=== PATIENT | male | born 1955 | race Caucasian/White ===

== ENCOUNTER → 2017-01-24 | Outpatient (CLI) | payer OTHER | LOC: FIMAGING 14:26 | PROVIDERS: ATTEND Family Medicine | DX: M48.02 Spinal stenosis, cervical region (principal); M99.71 Connective tissue and disc stenosis of intervertebral foramina of cervical region; M12.88 Other specific arthropathies, not elsewhere classified, other specified site; M50.322 Other cervical disc degeneration at C5-C6 level; M50.323 Other cervical disc degeneration at C6-C7 level; R07.9 Chest pain, unspecified ==

== ENCOUNTER 2017-08-14 10:46 | Emergency (ER) | payer OTHER ==
--- NOTE | 2017-08-14 11:05 | EDPHY ---
H & P Stated Complaint: TOBAR, dizziness, nausea; has not eaten today Source: Patient - Personal History Current Tetanus/Diphtheria Vaccine: Yes Tetanus Vaccine Date: unsure - Medical/Surgical History Hx Asthma: No Hx Chronic Respiratory Disease: No Hx Diabetes: No Hx Cardiac Disease: No Hx Renal Disease: No Hx Cirrhosis: No Hx Alcoholism: No Hx HIV/AIDS: No Hx Splenectomy or Spleen Trauma: No Other PMH: KNEE SURG,cervical fx - Family History Significant Family History: No pertinent family hx - Social History Smoking Status: Never smoked Alcohol Use: Sober Drug Use: None Time Seen by Provider: 08/14/17 11:04 HPI/ROS: CHIEF COMPLAINT: Headache, dizzy, mumbled speech HISTORY OF PRESENT ILLNESS: Patient is a 61-year-old man with no significant past medical history who comes to the emergency department complaining of dizziness, headache and confusion that began at 9:30 a.m.. He has very mumbled and slow speech. His states that this is very out of character for him. He denies chest pain or shortness of breath. No new medications. He does describe unusual distortion of his vision on both sides. He also complains of some visual abnormalities in his peripheral vision. REVIEW OF SYSTEMS: Constitutional: denies: chills, fever, recent illness, recent injury EENTM: denies: blurred vision, double vision, nose congestion Respiratory: denies: cough, shortness of breath Cardiac: denies: chest pain, irregular heart rate, lightheadedness, palpitations Gastrointestinal/Abdominal: denies: abdominal pain, diarrhea, nausea, vomiting, blood streaked stools Genitourinary: denies: dysuria, frequency, hematuria, pain Musculoskeletal: denies: joint pain, muscle pain Skin: denies: lesions, rash, jaundice, bruising Neurological: denies: headache, numbness, paresthesia, tingling, dizziness, weakness Hematologic/Lymphatic: denies: blood clots, easy bleeding, easy bruising Immunologic/allergic: denies: HIV/AIDS, transplant EXAM: GENERAL: Well-appearing, well-nourished and in no acute distress. HEAD: Atraumatic, normocephalic. EYES: Pupils equal round and reactive to light, extraocular movements intact, sclera anicteric, conjunctiva are normal. No nystagmus ENT: TMs normal, nares patent, oropharynx clear without exudates. Moist mucous membranes. NECK: Normal range of motion, supple without lymphadenopathy or JVD. LUNGS: Breath sounds clear to auscultation bilaterally and equal. No wheezes rales or rhonchi. HEART: Regular rate and rhythm without murmurs, rubs or gallops. ABDOMEN: Soft, nontender, normoactive bowel sounds. No guarding, no rebound. No masses appreciated. BACK: No CVA tenderness, no spinal tenderness, step-offs or deformities EXTREMITIES: Normal range of motion, no pitting or edema. No clubbing or cyanosis. NEUROLOGICAL: NIH stroke score 1 for mild dysarthria. Cranial nerves II through XII grossly intact. Normal speech, normal gait. 5/5 strength, normal movement in all extremities, normal sensation, no pronator drift PSYCH: Normal mood, normal affect. SKIN: Warm, dry, normal turgor, no visible rashes or lesions. (Felipe Zelaya) Constitutional: Initial Vital Signs Temperature (C) 36.9 C 08/14/17 10:52 Heart Rate 65 08/14/17 10:52 Respiratory Rate 18 08/14/17 10:52 Blood Pressure 142/86 H 08/14/17 10:52 O2 Sat (%) 96 08/14/17 10:52 O2 Delivery Mode Room Air Allergies/Adverse Reactions: No Known Allergies Allergy (Verified 08/14/17 11:01) Home Medications: Medication Instructions Recorded clonAZEPAM 08/14/17 Medical Decision Making - Diagnostics EKG Interpretation: An EKG obtained and was read and documented in trace view. Please see trace view for full reading and report. Sinus rhythm, no acute ischemic changes ( Felipe Zelaya) Imaging Results: Imaging Impressions Chest X-Ray 08/14/17 11:22 Impression: No acute abnormality identified. Head CT 08/14/17 11:22 Impression: 1. Normal CT brain without contrast. 2. Consider MRI of the brain without and with contrast enhancement, if there is continued clinical concern. Findings and recommendations discussed with Emergency Department physician, FELIPE ZELAYA at 11:30 hour, 08/14/2017. Final report concurs with initial preliminary interpretation. Brain MRI 08/14/17 13:20 Impression: 1. Negative. No acute intracranial hemorrhage or evidence of ischemia. 2. Minimal periventricular white matter disease in the frontal lobes is unchanged since 2006 and within normal limit for age. Findings discussed with Emergency Department physician, Stephanie Goldman M.D., on August 14, 2017 at 1530. ED Course/Re-evaluation: 11:15 a.m. Immediately on evaluation called a stroke alert and spoke with Dr. Silveira from [facility]. She is currently evaluating the patient 12:[address] Silveira from [facility] feels the patient is likely a complex migraine. His headache is improved and his speech is improved. He feels dizzy when he stands up but is able to ambulate. She does not recommend tPA. She recommends treatment for headache and MRI. We will transfer to [facility] for the MRI by ambulance. Spoke with Dr. Goldman who accepts. If his symptoms resolve and is MRI is negative he will be eligible for discharge. ( Felipe Zelaya) Differential Diagnosis: Partial list of the Differential diagnosis considered include but were not limited to; migraine, CVA and although unlikely based on the history and physical exam, I also considered acute coronary disease, PE, infection, trauma. (Felipe Zelaya) Other Provider: 61-year-old male presenting from the [facility] for an MRI. Please see my emergency department report separately. (Stephanie Goldman) - Data Points Laboratory Results: Laboratory Results 08/14/17 11:11 08/14/17 11:11 08/14/17 08/14/17 08/14/17 11:11 11:11 11:11 WBC RBC Hgb Hct MCV MCH MCHC RDW Plt Count MPV Neut % (Auto) Lymph % (Auto) Bailey % (Auto) Eos % (Auto) Baso % (Auto) Nucleat RBC Rel Count Absolute Neuts (auto) Absolute Lymphs (auto) Absolute Monos (auto) Absolute Eos (auto) Absolute Basos (auto) Absolute Nucleated RBC Immature Gran % Immature Gran # PT 13.3 SEC SEC (12.0-15.0) INR 1.04 (0.83-1.16) APTT 28.1 SEC SEC (23.0-38.0) POC Blood Source Patient Temperature POC pH POC pCO2 POC pO2 POC HCO3 POC Total CO2 POC Base Excess POC O2 Sat (Calc) Sodium 131 mEq/L L mEq/L (134-144) Potassium 4.2 mEq/L mEq/L (3.5-5.2) Chloride 96 mEq/L L mEq/L (97-110) Carbon Dioxide 24 mEq/l mEq/l (22-31) Anion Gap 11 mEq/L mEq/L (8-16) BUN 13 mg/dL mg/dL (7-23) Creatinine 0.8 mg/dL mg/dL (0.7-1.3) Estimated GFR > 60 Glucose 98 mg/dL mg/dL (70-100) POC Glucose Calcium 8.7 mg/dL mg/dL (8.5-10.4) Troponin I < 0.012 ng/mL ng/mL (0.000-0.034) Urine Color PALE YELLOW Urine Appearance CLEAR Urine pH 5.5 (5.0-7.5) Ur Specific [place] <= 1.005 (1.002-1.030) Urine Protein NEGATIVE (NEGATIVE) Urine Ketones NEGATIVE (NEGATIVE) Urine Blood NEGATIVE (NEGATIVE) Urine Nitrate NEGATIVE (NEGATIVE) Urine Bilirubin NEGATIVE (NEGATIVE) Urine Urobilinogen 0.2 EU EU (0.2-1.0) Ur Leukocyte Esterase NEGATIVE (NEGATIVE) Urine Glucose NEGATIVE (NEGATIVE) 08/14/17 08/14/17 08/14/17 11:11 11:10 11:02 WBC 4.96 10^3/uL 10^3/uL (3.80-9.50) RBC 4.97 10^6/uL 10^6/uL (4.40-6.38) Hgb 15.5 g/dL g/dL (13.7-17.5) Hct 44.8 % % (40.0-51.0) MCV 90.1 fL fL (81.5-99.8) MCH 31.2 pg pg (27.9-34.1) MCHC 34.6 g/dL g/dL (32.4-36.7) RDW 11.9 % % (11.5-15.2) Plt Count 195 10^3/uL 10^3/uL (150-400) MPV 10.0 fL fL (8.7-11.7) Neut % (Auto) 56.1 % % (39.3-74.2) Lymph % (Auto) 29.0 % % (15.0-45.0) Bailey % (Auto) 11.1 % % (4.5-13.0) Eos % (Auto) 2.6 % % (0.6-7.6) Baso % (Auto) 0.6 % % (0.3-1.7) Nucleat RBC Rel Count 0.0 % % (0.0-0.2) Absolute Neuts (auto) 2.78 10^3/uL 10^3/uL (1.70-6.50) Absolute Lymphs (auto) 1.44 10^3/uL 10^3/uL (1.00-3.00) Absolute Monos (auto) 0.55 10^3/uL 10^3/uL (0.30-0.80) Absolute Eos (auto) 0.13 10^3/uL 10^3/uL (0.03-0.40) Absolute Basos (auto) 0.03 10^3/uL 10^3/uL (0.02-0.10) Absolute Nucleated RBC 0.00 10^3/uL 10^3/uL (0-0.01) Immature Gran % 0.6 % % (0.0-1.1) Immature Gran # 0.03 10^3/uL 10^3/uL (0.00-0.10) PT INR APTT POC Blood Source OTHER Patient Temperature 37.0 DEGREES DEGREES POC pH 7.39 (7.35-7.45) POC pCO2 42 mmHg H mmHg (34-38) POC pO2 28 mmHg L* mmHg (65-75) POC HCO3 25 mEq/L mEq/L (22-26) POC Total CO2 26 mEq/L mEq/L (23-27) POC Base Excess 0.0 mEq/L mEq/L (-2.5-2.5) POC O2 Sat (Calc) 53 % L % (92-95) Sodium Potassium Chloride Carbon Dioxide Anion Gap BUN Creatinine Estimated GFR Glucose POC Glucose 107 mg/dL H mg/dL (70-100) Calcium Troponin I Urine Color Urine Appearance Urine pH Ur Specific [place] Urine Protein Urine Ketones Urine Blood Urine Nitrate Urine Bilirubin Urine Urobilinogen Ur Leukocyte Esterase Urine Glucose Medications Given: Discontinued Medications Acetaminophen (Tylenol) 1,000 mg PO EDNOW ONE Stop: 08/14/17 15:58 Last Admin: 08/14/17 16:21 Dose: 1,000 mg Sodium Chloride (Ns) 1,000 mls @ 0 mls/hr IV EDNOW ONE; Wide Open PRN Reason: Protocol Stop: 08/14/17 11:55 Last Admin: 08/14/17 11:57 Dose: 1,000 mls Ibuprofen (Motrin) 600 mg PO EDNOW ONE Stop: 08/14/17 15:58 Last Admin: 08/14/17 16:22 Dose: 600 mg Metoclopramide HCl (Reglan Injection) 10 mg IVP EDNOW ONE Stop: 08/14/17 11:55 Last Admin: 08/14/17 11:57 Dose: 10 mg Point of Care Test Results: 08/14/17 08/14/17 11:02 11:10 POC pCO2 42 H POC pO2 28 L* POC Glucose 107 H Departure - Departure Disposition: [facility] ER Clinical Impression: Dizziness Headache Qualifiers: Headache type: unspecified Headache chronicity pattern: acute headache Intractability: not intractable Qualified Code(s): R51 - Headache Condition: Fair Instructions: Migraine Headache (ED), Ocular Migraine (ED) Additional Instructions: Get plenty of rest. Drink plenty of fluid. Okay to use Tylenol or ibuprofen if needed for any residual headache. Follow up with a neurologist as directed below. Return to the emergency department or seek care urgently if you develop recurrent symptoms speech difficulties, numbness or tingling in the arms or legs , weakness, severe headache, or other concerns. Referrals: Cindy Herrera MD [Primary Care Provider] - As per Instructions Moses Parker MD [Medical Doctor] - As per Instructions
[2017-08-14 11:15] LABS: CALCULATED OXYGEN SATURATION 53 % (92-95)
[2017-08-14 11:30] LABS: % IMMATURE GRANULYOCYTES 0.6 % (0.0-1.1); ABSOLUTE IMMATURE GRANULOCYTES 0.03 10^3/uL (0.00-0.10); ADD DIFF? NO; ADD MORPH? NO; ADD SCAN? NO; ATYPICAL LYMPHOCYTE FLAG 0 (0-99); FRAGMENT RBC FLAG 0 (0-99); HEMATOCRIT 44.8 % (40.0-51.0); HEMOGLOBIN 15.5 g/dL (13.7-17.5); LEFT SHIFT FLG 0 (0-99); LIPEMIA HEMOLYSIS FLAG 90 (0-99); MEAN CELL HEMOGLOBIN 31.2 pg (27.9-34.1); MEAN CELL HEMOGLOBIN CONCENTR. 34.6 g/dL (32.4-36.7); MEAN CELL VOLUME 90.1 fL (81.5-99.8); PLATELET CLUMPS FLAG 0 (0-99); PLATELET COUNT 195 10^3/uL (150-400); RED BLOOD CELL COUNT 4.97 10^6/uL (4.40-6.38); RED CELL DISTRIBUTION WIDTH 11.9 % (11.5-15.2)
[2017-08-14 11:34] LABS: INR 1.04 (0.83-1.16); PROTIME(PATIENT) 13.3 SEC (12.0-15.0)
[2017-08-14 11:35] LABS: APTT 28.1 SEC (23.0-38.0)
[2017-08-14 11:42] LABS: ANION GAP 11 mEq/L (8-16); CALCIUM 8.7 mg/dL (8.5-10.4); CARBON DIOXIDE 24 mEq/l (22-31); CHLORIDE 96 mEq/L (97-110); CREATININE 0.8 mg/dL (0.7-1.3); GLOMERULAR FILTRATION RATE > 60; GLUCOSE 98 mg/dL (70-100); POTASSIUM 4.2 mEq/L (3.5-5.2); SODIUM 131 mEq/L (134-144)
[2017-08-14 11:44] LABS: LEUKOCYTE ESTERASE,URINE NEGATIVE (NEGATIVE); NITRITE,URINE NEGATIVE (NEGATIVE); PH,URINE 5.5 (5.0-7.5)
[2017-08-14 11:52] LABS: COLOR PALE YELLOW; TROPONIN I < 0.012 ng/mL (0.000-0.034)
[2017-08-14] MEDS ORDERED: METOCLOPRAMIDE 10 MG/2 ML VIAL IVP ONE (11:54)
[2017-08-14] MEDS ORDERED: NS 1,000 ML IV ONE (11:54)
--- NOTE | 2017-08-14 12:16 | CPEKG ---
Heart Rate: 63 RR Interval: 952 P-R Interval: 192 QRSD Interval: 98 QT Interval: 408 QTC Interval: 418 P Lenorah: 65 QRS Lenorah: 36 T Wave Lenorah: 38 EKG Severity - NORMAL ECG - EKG Impression: SINUS RHYTHM Electronically Signed By: Felipe Zelaya 14-Aug-2017 12:17:02
[2017-08-14 13:22] VITALS: O2SAT 96
--- NOTE | 2017-08-14 13:37 | EDPHY ---
HPI/HX/ROS/PE/MDM Narrative: CHIEF COMPLAINT: Headache, nausea, dizziness HISTORY OF PRESENT ILLNESS: This patient is a 61 year old male arriving from the [facility] in [place] at the request of Dr. Zelaya, emergency physician, for further evaluation and MRI for dizziness, headache, and nausea onset this morning. This morning, he went to [place] for routine UA after drinking more than one gallon of liquid and no breakfast. When he got out of the car and began to hear a "whooshing" noise in both ears and felt mild nausea. After the test, he felt well enough to drive home, but when he arrived home, he felt very nauseated. He continued to have an abnormal sensation in his ears and noted shimmering in both visual rothman. His insisted he present to the emergency department for evaluation. His had to assist him to walk into the emergency department because he was very wobbly. He began to have difficulty with speech at triage at the [facility]. He describes that as difficulty making words, and endorses left-sided headache. Currently, his speech is feeling normal and his dizziness is mostly resolved. He was able to walk to and from the restroom without difficulty. His headache is currently about 2 or 3/10 in severity. No fever, chills, chest pain, shortness of breath, palpitations, vomiting, diarrhea, urinary complaints. REVIEW OF SYSTEMS: Aside from elements discussed in the HPI, a comprehensive 10-point review of systems was reviewed and is negative. PAST MEDICAL HISTORY: 1. Orthopedic surgery (knee) 2. Cervical spine fracture SOCIAL HISTORY: . Lives in [place]. Works for [employer]. VITAL SIGNS: Reviewed by me GENERAL: Well-developed, well-nourished, resting comfortably in no respiratory distress. HEENT: Atraumatic. Eyes: No icterus, no injection. Mouth: moist mucous membranes. No erythema or lesions. Neck: supple with no adenopathy. LUNGS: Clear to auscultation bilaterally, no wheezes, rhonchi or rales. CARDIAC: Regular rate and rhythm, no rubs, murmurs or gallops. ABDOMEN: Soft, nontender, nondistended, bowel sounds normal. BACK: No CVA tenderness. EXTREMITIES: No trauma. No edema. Range of motion is normal throughout. NEURO: Alert and oriented, grossly nonfocal. SKIN: Warm and dry, no rash. PSYCHIATRIC: Normal mentation, no agitation. Portions of this note were transcribed by a medical referral coordinator. I personally performed a history, physical exam, medical decision making, and confirmed accuracy of information the transcribed note. ED Course: 13:[address] Zelaya at [facility]. Interviewed and examined patient. The patient is neurologically intact on my assessment. Cranial nerves intact. Normal [id number]. Sensation intact. Plan for MRI as planned by Dr. Zelaya. Results: MRI of the brain was obtained. The results of the study were reported to me as : No signs of CVA, no significant abnormalities. The study was read by Dr. Sarah, please see his full report. I viewed the images myself on the PACS system. Patient was reassessed. He reports feeling significantly improved. He has no further slurred speech or visual complaints. He has a residual headache which was treated with Tylenol and ibuprofen. He was discharged to follow up with Dr. Parker. He and his family are comfortable with this plan. MDM: After history was obtained, and the physical exam performed, a differential for patient's symptom complaints was considered including but not limited to intracranial injury, TIA, ischemic cerebrovascular accident, hemorrhagic cerebrovascular accident, hypoglycemia, complex migraine, metastases, tumor, seizure, or electrolyte abnormality - Data Points Imaging Results: Imaging Impressions Chest X-Ray 08/14/17 11:22 Impression: No acute abnormality identified. Head CT 08/14/17 11:22 Impression: 1. Normal CT brain without contrast. 2. Consider MRI of the brain without and with contrast enhancement, if there is continued clinical concern. Findings and recommendations discussed with Emergency Department physician, AMARIS ZELAYA at 11:30 hour, 08/14/2017. Final report concurs with initial preliminary interpretation. Brain MRI 08/14/17 13:20 Impression: 1. Negative. No acute intracranial hemorrhage or evidence of ischemia. 2. Minimal periventricular white matter disease in the frontal lobes is unchanged since 2006 and within normal limit for age. Findings discussed with Emergency Department physician, Stephanie Goldman M.D., on August 14, 2017 at 1530. Laboratory Results: Laboratory Results 08/14/17 11:11 08/14/17 11:11 08/14/17 08/14/17 08/14/17 11:11 11:11 11:11 WBC RBC Hgb Hct MCV MCH MCHC RDW Plt Count MPV Neut % (Auto) Lymph % (Auto) [place] % (Auto) Eos % (Auto) Baso % (Auto) Nucleat RBC Rel Count Absolute Neuts (auto) Absolute Lymphs (auto) Absolute Monos (auto) Absolute Eos (auto) Absolute Basos (auto) Absolute Nucleated RBC Immature Gran % Immature Gran # PT 13.3 SEC SEC (12.0-15.0) INR 1.04 (0.83-1.16) APTT 28.1 SEC SEC (23.0-38.0) POC Blood Source Patient Temperature POC pH POC pCO2 POC pO2 POC HCO3 POC Total CO2 POC Base Excess POC O2 Sat (Calc) Sodium 131 mEq/L L mEq/L (134-144) Potassium 4.2 mEq/L mEq/L (3.5-5.2) Chloride 96 mEq/L L mEq/L (97-110) Carbon Dioxide 24 mEq/l mEq/l (22-31) Anion Gap 11 mEq/L mEq/L (8-16) BUN 13 mg/dL mg/dL (7-23) Creatinine 0.8 mg/dL mg/dL (0.7-1.3) Estimated GFR > 60 Glucose 98 mg/dL mg/dL (70-100) POC Glucose Calcium 8.7 mg/dL mg/dL (8.5-10.4) Troponin I < 0.012 ng/mL ng/mL (0.000-0.034) Urine Color PALE YELLOW Urine Appearance CLEAR Urine pH 5.5 (5.0-7.5) Ur Specific [place] <= 1.005 (1.002-1.030) Urine Protein NEGATIVE (NEGATIVE) Urine Ketones NEGATIVE (NEGATIVE) Urine Blood NEGATIVE (NEGATIVE) Urine Nitrate NEGATIVE (NEGATIVE) Urine Bilirubin NEGATIVE (NEGATIVE) Urine Urobilinogen 0.2 EU EU (0.2-1.0) Ur Leukocyte Esterase NEGATIVE (NEGATIVE) Urine Glucose NEGATIVE (NEGATIVE) 08/14/17 08/14/17 08/14/17 11:11 11:10 11:02 WBC 4.96 10^3/uL 10^3/uL (3.80-9.50) RBC 4.97 10^6/uL 10^6/uL (4.40-6.38) Hgb 15.5 g/dL g/dL (13.7-17.5) Hct 44.8 % % (40.0-51.0) MCV 90.1 fL fL (81.5-99.8) MCH 31.2 pg pg (27.9-34.1) MCHC 34.6 g/dL g/dL (32.4-36.7) RDW 11.9 % % (11.5-15.2) Plt Count 195 10^3/uL 10^3/uL (150-400) MPV 10.0 fL fL (8.7-11.7) Neut % (Auto) 56.1 % % (39.3-74.2) Lymph % (Auto) 29.0 % % (15.0-45.0) [place] % (Auto) 11.1 % % (4.5-13.0) Eos % (Auto) 2.6 % % (0.6-7.6) Baso % (Auto) 0.6 % % (0.3-1.7) Nucleat RBC Rel Count 0.0 % % (0.0-0.2) Absolute Neuts (auto) 2.78 10^3/uL 10^3/uL (1.70-6.50) Absolute Lymphs (auto) 1.44 10^3/uL 10^3/uL (1.00-3.00) Absolute Monos (auto) 0.55 10^3/uL 10^3/uL (0.30-0.80) Absolute Eos (auto) 0.13 10^3/uL 10^3/uL (0.03-0.40) Absolute Basos (auto) 0.03 10^3/uL 10^3/uL (0.02-0.10) Absolute Nucleated RBC 0.00 10^3/uL 10^3/uL (0-0.01) Immature Gran % 0.6 % % (0.0-1.1) Immature Gran # 0.03 10^3/uL 10^3/uL (0.00-0.10) PT INR APTT POC Blood Source OTHER Patient Temperature 37.0 DEGREES DEGREES POC pH 7.39 (7.35-7.45) POC pCO2 42 mmHg H mmHg (34-38) POC pO2 28 mmHg L* mmHg (65-75) POC HCO3 25 mEq/L mEq/L (22-26) POC Total CO2 26 mEq/L mEq/L (23-27) POC Base Excess 0.0 mEq/L mEq/L (-2.5-2.5) POC O2 Sat (Calc) 53 % L % (92-95) Sodium Potassium Chloride Carbon Dioxide Anion Gap BUN Creatinine Estimated GFR Glucose POC Glucose 107 mg/dL H mg/dL (70-100) Calcium Troponin I Urine Color Urine Appearance Urine pH Ur Specific [place] Urine Protein Urine Ketones Urine Blood Urine Nitrate Urine Bilirubin Urine Urobilinogen Ur Leukocyte Esterase Urine Glucose Medications Given: Discontinued Medications Acetaminophen (Tylenol) 1,000 mg PO EDNOW ONE Stop: 08/14/17 15:58 Last Admin: 08/14/17 16:21 Dose: 1,000 mg Sodium Chloride (Ns) 1,000 mls @ 0 mls/hr IV EDNOW ONE; Wide Open PRN Reason: Protocol Stop: 08/14/17 11:55 Last Admin: 08/14/17 11:57 Dose: 1,000 mls Ibuprofen (Motrin) 600 mg PO EDNOW ONE Stop: 08/14/17 15:58 Last Admin: 08/14/17 16:22 Dose: 600 mg Metoclopramide HCl (Reglan Injection) 10 mg IVP EDNOW ONE Stop: 08/14/17 11:55 Last Admin: 08/14/17 11:57 Dose: 10 mg Point of Care Test Results: 08/14/17 08/14/17 11:02 11:10 POC pCO2 42 H POC pO2 28 L* POC Glucose 107 H General Time Seen by Provider: 08/14/17 11:04 Initial Vital Signs: Initial Vital Signs Temperature (C) 36.9 C 08/14/17 10:52 Heart Rate 65 08/14/17 10:52 Respiratory Rate 18 08/14/17 10:52 Blood Pressure 142/86 H 08/14/17 10:52 O2 Sat (%) 96 08/14/17 10:52 O2 Delivery Mode Room Air Allergies/Adverse Reactions: No Known Allergies Allergy (Verified 08/14/17 11:01) Home Medications: Medication Instructions Recorded clonAZEPAM 08/14/17 Departure - Departure Disposition: [facility] Clinical Impression: Dizziness Headache Qualifiers: Headache type: unspecified Headache chronicity pattern: acute headache Intractability: not intractable Qualified Code(s): R51 - Headache Condition: Fair Instructions: Migraine Headache (ED), Ocular Migraine (ED) Additional Instructions: Get plenty of rest. Drink plenty of fluid. Okay to use Tylenol or ibuprofen if needed for any residual headache. Follow up with a neurologist as directed below. Return to the emergency department or seek care urgently if you develop recurrent symptoms speech difficulties, numbness or tingling in the arms or legs , weakness, severe headache, or other concerns. Referrals: Cindy Herrera MD [Primary Care Provider] - As per Instructions Moses Parker MD [Medical Doctor] - As per Instructions Report Scribed for: Stephanie Goldman Report Scribed by: Letitia Christensen Date of Report: 08/14/17 Time of Report: 13:37
[2017-08-14] MEDS ORDERED: IBUPROFEN 600 MG TAB PO ONE (15:57)
[2017-08-14] MEDS ORDERED: ACETAMINOPHEN 500 MG TAB PO ONE (15:57)
[2017-08-14 17:14] VITALS: BP 112/69; PULSE 68; RESP 16; TEMP 97.9
== END 2017-08-14 17:11 | disposition home or self-care (01) ==
LOC: CED 10:46
DX: R51 Headache (principal); R42 Dizziness and giddiness; E86.9 Volume depletion, unspecified
CPT/HCPCS: 70450-PO; 71010-PO; 80048-PO; 81003-PO; 82947-QW; 84484-PO; 85025-PO; 85610-PO; 85730-PO; 96374; J2765

== ENCOUNTER 2019-03-03 11:41 | Observation (INO) | payer BC, OTHER ==
[2019-03-03] MEDS ORDERED: NS 500 ML IV ONE (12:22)
[2019-03-03] MEDS ORDERED: MECLIZINE HCL 25 MG TAB PO ONE (12:23)
[2019-03-03] MEDS ORDERED: LORazepam 2 MG/ML INJ IVP ONE (12:23)
[2019-03-03] MEDS ORDERED: ONDANSETRON 4 MG/2 ML VIAL IVP ONE (12:24)
--- NOTE | 2019-03-03 13:37 | EDPHY ---
H & P Smoking Status: Never smoked Time Seen by Provider: 03/03/19 11:48 HPI/ROS: CHIEF COMPLAINT: Dizziness, nausea vomiting. HISTORY OF PRESENT ILLNESS: Patient states that on Sunday while at work he was turning his head to look at an occiloscope, when he developed a dizzy spell. He describes it as a spinning sensation. It lasted about 30 sec and then went away. He was able to drive home and had 1 more episode of dizziness while at home that evening. He was able to eat and drink and felt fine when he went to bed. Sunday he describes as "ugly". Essentially he was in bed all day with significant dizziness, again described as a spinning sensation, worse with any movement. He was able to find relief if he were to hold still. He did not have any nausea or vomiting at that time. Sunday he felt well when he got up he was able to go to the grocery store and spent a significant time shopping. He had 1 "swimmy" feeling while he was shopping but it went away. He was able to drive home and have a normal dinner on Sunday. This morning, however, he states when he got up he felt good but after moving in bed things began spinning again. Today the spinning has been more persistent and associated with nausea and vomiting. Any movement makes him nauseous and he has had multiple episodes of vomiting. Patient denies any recent illnesses. He has no neck pain. He has no vision changes. He has no weakness or numbness to any of his extremities. He has not fallen. REVIEW OF SYSTEMS: Constitutional: No fever, no chills. Eyes: No discharge. ENT: No sore throat. Cardiovascular: No chest pain, no palpitations. Respiratory: No cough, no shortness of breath. Gastrointestinal: No abdominal pain, no vomiting. Genitourinary: No dysuria. Musculoskeletal: No back pain. Skin: No rashes. Neurological: No headache. General Appearance: Alert, moderate distress. Eyes: Pupils equal and round no pallor or injection. Nice diagnose to the left. ENT, Mouth: Mucous membranes moist. Respiratory: There are no retractions, lungs are clear to auscultation. Cardiovascular: Regular rate and rhythm. Gastrointestinal: Abdomen is soft and nontender, no masses, bowel sounds normal. Neurological: Awake, alert, oriented. Cranial nerves intact other than ice diagnose to the left. Normal strength and sensation all 4 extremities. Normal reflexes. No clonus. Unable to evaluate gait. Skin: Warm and dry, no rashes. Musculoskeletal: Neck is supple nontender. Extremities are symmetrical, full range of motion, no edema. Psychiatric: Patient is oriented X 3, there is no agitation. Medical/surgical history: Knee surgery. Social history: Denies tobacco, EtOH, drugs. (Gaby Palacio) Constitutional: Initial Vital Signs Temperature (C) 36.3 C 03/03/19 11:47 Heart Rate 64 03/03/19 11:47 Respiratory Rate 16 03/03/19 11:47 Blood Pressure 120/74 03/03/19 11:47 O2 Sat (%) 96 03/03/19 11:47 O2 Delivery Mode Room Air O2 (L/minute) 2 Allergies/Adverse Reactions: No Known Allergies Allergy (Verified 03/03/19 11:46) Home Medications: Medication Instructions Recorded NK [No Known Home Meds] 03/03/19 Medical Decision Making ED Course/Re-evaluation: 1:35 p.m. Recheck after medications. Patient feeling much better although moving slowly. Some leftward nystagmus. Remains dizzy. 2:30 p.m. Re-evaluation. Patient unable to ambulate without significant dizziness and nausea. Discussed with Dr. Marrufo at 3:00 a.m. At the end of my shift for further treatment and evaluation plan for medication and eply maneuver. (Gaby Palacio) Differential Diagnosis: Differential diagnosis includes but is not limited to vertigo, labyrinthitis, CVA, electrolyte abnormality. After evaluation patient is presentation most consistent with benign positional vertigo. Very lower no suspicion of cerebrovascular accident as cause of his symptoms today. However his symptoms have been persistent and although responsive to medications still not able to be discharged home. Discussed with Dr. Marrufo at the end of my shift. She may attempt Kacie maneuver and re-evaluate. (Gaby Palacio) Other Provider: I assumed care patient after he was treated symptomatically for vertigo. On re- evaluation the patient continued to have significant vertigo sensation, nausea and vomiting. He also complained of the light bothering his eyes. He denies any headache or neck pain. Denies any focal numbness weakness difficulty with double vision, speech or swallowing. On exam he was noted to have left gaze nystagmus. He was unable to cooperate with head impulse test. I performed an Kacie maneuver. On re-evaluation about 15-20 minutes later the patient was feeling significantly better, smiling was able to sit up on his own after after sitting for a few minutes at a he suddenly became overcome again with sensation of vertigo and nausea in lay back down not feel like he was stable enough to stay sitting or to walk. After this he was given a dose of IV Valium. Patient was able to sleep but on re-evaluation when he stood up he was again extremely dizzy and was unable to maintain his balance enough to even walk to the bathroom and could barely stand whole urinal. Given his lack of response symptomatic treatment his severe so persistent symptoms at this point we will admit him for ongoing symptomatic treatment as well as further evaluation. I discussed the case with Dr. Khalil, the hospitalist on-call, who accepts the patient in transfer.. (Migdalia Huynh) - Data Points Laboratory Results: 03/03/19 13:03 POC Sodium 142 mEq/L mEq/L (135-145) POC Potassium 3.9 mEq/L mEq/L (3.3-5.0) POC Chloride 105.0 mEq/L mEq/L (97-110) POC Total CO2 25 mEq/L mEq/L (22-31) POC BUN 22 mg/dL mg/dL (7-23) POC Creatinine 0.4 mg/dL L mg/dL (0.7-1.3) POC Glucose 128 mg/dL H mg/dL (70-100) POC Calcium 9.3 mg/dL mg/dL (8.5-10.4) Medications Given: Discontinued Medications Diazepam (Valium) 5 mg IVP EDNOW ONE Stop: 03/03/19 16:10 Last Admin: 03/03/19 16:29 Dose: 5 mg Diazepam (Valium) 5 mg IVP EDNOW ONE Stop: 03/03/19 16:21 Last Admin: 03/03/19 16:35 Dose: Not Given Sodium Chloride (Ns) 500 mls @ 1,000 mls/hr IV EDNOW ONE PRN Reason: Protocol Stop: 03/03/19 12:51 Last Admin: 03/03/19 12:38 Dose: 500 mls Lorazepam (Ativan Injection) 1 mg IVP EDNOW ONE Stop: 03/03/19 12:24 Last Admin: 03/03/19 12:44 Dose: 1 mg Meclizine HCl (Meclizine Hcl) 50 mg PO EDNOW ONE Stop: 03/03/19 12:24 Last Admin: 03/03/19 12:47 Dose: 50 mg Ondansetron HCl (Zofran) 4 mg IVP EDNOW ONE Stop: 03/03/19 12:25 Last Admin: 03/03/19 12:38 Dose: 4 mg Point of Care Test Results: CBC CBC Collection Date 03/03/19 CBC Collection Time 12:10 WBC 9.85 RBC 5.62 HGB 17.0 HCT 49.7 PLT 252 Neut # 8.59 Neut 87.3 LYMPH # 0.89 LYMPH 9.0 MCV 88.4 Chemistry 03/03/19 13:03 POC Sodium 142 mEq/L mEq/L (135-145) POC Potassium 3.9 mEq/L mEq/L (3.3-5.0) POC Chloride 105.0 mEq/L mEq/L (97-110) POC Total CO2 25 mEq/L mEq/L (22-31) POC BUN 22 mg/dL mg/dL (7-23) POC Creatinine 0.4 mg/dL L mg/dL (0.7-1.3) POC Glucose 128 mg/dL H mg/dL (70-100) POC Calcium 9.3 mg/dL mg/dL (8.5-10.4) Basic Metabolic Panel BMP Collection Date 03/03/19 BMP Collection Time 12:10 Departure - Departure Disposition: [facility] Inpatient Acute Clinical Impression: Vertigo Condition: Fair Referrals: Cindy Herrera MD [Primary Care Provider] - As per Instructions
[2019-03-03] MEDS ORDERED: DIAZEPAM 10 MG/2 ML SYR IVP ONE ×2 (16:09→16:20)
[2019-03-03] MEDS ORDERED: ONDANSETRON 4 MG/2 ML VIAL IVP PRN (21:43)
[2019-03-03] MEDS ORDERED: ACETAMINOPHEN 325 MG TAB PO PRN (21:43)
[2019-03-03] MEDS ORDERED: ONDANSETRON DISINTEGRATING 4 MG TAB PO PRN (21:43)
[2019-03-03] MEDS ORDERED: LORazepam 2 MG/ML INJ IVP PRN (22:02)
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
[2019-03-03] MEDS: NS 1,000 ML IV SCH (23:16)
[2019-03-03] MEDS: MECLIZINE HCL 25 MG TAB PO PRN (23:16)
[2019-03-04] MEDS: NS 1,000 ML IV SCH (05:50)
--- NOTE | 2019-03-04 13:25 | HOSPPROG ---
Hospitalist Progress Note Assessment/Plan: 63 yo M with no significant PMH presenting with vertigo x 3 days and visual changes x 1 week # vertigo: improving s/p Kacie maneuver yesterday but still not completely resolved, no longer having nystagmus but feels 'woozy' and having difficulty ambulating. Brain MRI reviewed without acute abnormality noted although comment regarding chronic inflammation of the left mastoid noted--will review with ENT/ radiology # visual changes: patient noting left sided black spots and area the size of an eyelash concerning for retinal detachment. Discussed with optho who will evaluate in office later today # n/v: resolved, was in association with severe vertigo # chronic inflammation of mastoid: as above, unclear etiology but interesting this is on the left side, will discuss with ENT # observation status--if patient able to ambulate may be able to dc later today Patient new to my care. Old records reviewed and summarized as above. Care plan reviewed with optho, further hx obtained from patients present at bedside. Subjective: patient notes he is feeling quite a bit better but still having some dizziness/wooziness and still hasn't tried to walk on his own, was able to eat lunch Objective: Vital Signs Temp Pulse Resp BP Pulse Ox 36.6 C 66 16 114/66 92 03/04/19 11:19 03/04/19 11:19 03/04/19 11:19 03/04/19 11:19 03/04/19 11:19 03/03/19 03/04/19 03/05/19 05:59 05:59 05:59 Intake Total 1846 428 Output Total 975 400 Balance 871 28 awake alert anicteric eomi op clear rrr no mrg cta b soft nt nd no cce warm dry well perfused oriented appropriate - Time Spent With Patient Time Spent with Patient: greater than 35 minutes Time Spent with Patient: Greater than 35 minutes spent on this patients care, greater than 50% of time spent counseling, educating, and coordinating care regarding the above mentioned plan. ICD10 Worksheet Patient Problems: Problems Problem Status Onset Vertigo Acute
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
[2019-03-04] MEDS: MECLIZINE HCL 25 MG TAB PO PRN (23:35)
[2019-03-05] MEDS: NS 1,000 ML IV SCH (05:45)
[2019-03-05 08:10] VITALS: BP 111/64
[2019-03-05] MEDS ORDERED: predniSONE 20 MG TAB PO ONE (09:39)
--- NOTE | 2019-03-05 13:41 | PDDCSUM ---
Discharge Summary Discharge Summary: Dates of service 03/03-03/05/19 Consultations: opthomology procedures: brain MRI Hospital course by problem: 63 yo M with no significant PMH presenting with vertigo x 3 days and visual changes x 1 week. Patient had slow improvement in vertigo but was ambulating safely at time of dc. Visual changes evaluated by optho and not felt to be in need of further acute management. # vertigo: sxs slow to improve and on evaluation by PT and myself does not seem c/w BPPV. Brain MRI reviewed without acute abnormality noted although comment regarding chronic inflammation of the left mastoid noted. Started on steroids with improvement, plan to dc with medrol dose donta and plan to f/u with ENT in coming 1-2 weeks. Explained that neurology evaluation likely not required however if ENT eval is unrevealing would recommend f/u with neuro for further evaluation. # visual changes: patient noting left sided black spots and area the size of an eyelash, optho exam reassuring, plan to f/u as needed # n/v: resolved, was in association with severe vertigo # chronic inflammation of mastoid: as above, unclear etiology but interesting this is on the left side, patient to f/u with ENT as above DC home Items for f/u: --ENT evaluation and review of MRI findings --referred for vestibular rehab > 35 min spent in dc more than half in discussion/counseling with patient and his
== END 2019-03-05 15:35 | disposition home or self-care (01) ==
LOC: CED 11:41 → F3N 20:30
PROVIDERS: ADMIT Internal Medicine; ATTEND Internal Medicine
DX: R42 Dizziness and giddiness (principal); R11.2 Nausea with vomiting, unspecified; H75.82 Other specified disorders of left middle ear and mastoid in diseases classified elsewhere; E86.9 Volume depletion, unspecified
CPT/HCPCS: 70551; 96361; 96374; 96375; 97161; 99285; G0378; 80048-ER; 85025-QW-ER; J2060; J2405; J3360; J7512